=== PATIENT | male | born 1945 | race African-American/Black ===

== ENCOUNTER 2016-05-28 08:02 | Emergency (ER) | payer OTHER | END 2016-05-28 09:30 | disposition home or self-care (01) | LOC: ER 08:02 | DX: J18.1 Lobar pneumonia, unspecified organism (principal); E78.5 Hyperlipidemia, unspecified; E11.9 Type 2 diabetes mellitus without complications; I10 Essential (primary) hypertension; M10.9 Gout, unspecified; Z88.1 Allergy status to other antibiotic agents; Z79.84 Long term (current) use of oral hypoglycemic drugs; Z79.899 Other long term (current) drug therapy | CPT/HCPCS: 87502; 87651 ==